=== PATIENT | male | born 1980 | race American Indian/Alaskan Native ===

== ENCOUNTER 2021-03-13 08:13 | Day surgery (SDC) | payer MEDICARE ==
--- NOTE | 2021-03-13 08:59 | Short Stay Summary ---
Short Stay Documentation Date of service: 03/13/21 - History Principal diagnosis: Chest Pain H&P: obtained from office Past Medical History: diabetes, hypertension Past Surgical History: no valve replacement, no CABG, no PTCA Social history: smoking, no alcohol abuse - Allergies and Medications Current Medications: Allergies No Known Allergies Allergy (Unverified 08/13/18 11:03) Home Medications Medication Instructions Recorded Confirmed Last Taken Type Cyclobenzaprine [Flexeril] 10 mg PO TID #30 tablet 08/13/18 Unknown Rx Ibuprofen [Motrin] 800 mg PO Q8HR #30 tablet 08/13/18 Unknown Rx - Physical exam General appearance: no acute distress Integumentary: no rash, other (R radial site - clean/dry/intact, no evidence of bleeding or hematoma) HEENT: Atraumatic Lungs: Clear to auscultation Heart: Regular rate, Normal S1, Normal S2, No murmurs Gastrointestinal: normal Extremities: pulses intact, No edema, normal temperature Neurological: Normal speech, Normal tone, Sensation intact - Brief post op/procedure progress note Date of procedure: 03/13/21 Pre-op diagnosis: Chest Pain Surgeon: JAQUI SNOW Estimated blood loss: minimal Pathology: none Condition: stable - Hospital course Hospital course: Pt presented for elective LHC, which revealed subtotal to total occlusion of the dominant RCA in the proximal part with faint filling antegradely and excellent collaterals on LCA injection, otherwise minimal irregularities and normal LV function. Pt tolerated procedure well. Currently stable with no complaints. Plan for outpatient intervention of [facility] [employer] DIRECTOR of RCA @ [place] (Dr. Carballo). Initiate bASA, Plavix, statin, and Imdur in the meantime. - Disposition Condition at discharge: Good Disposition: [id number] TO HOME OR SELFCARE - Discharge Diagnoses (1) CAD (coronary artery disease), [place] coronary artery Status: Chronic Qualifiers: [place] vs. transplanted heart: [place] heart Associated angina: with stable angina Qualified Code(s): I25.118 - Atherosclerotic heart disease of [place] coronary artery with other forms of angina pectoris Short Stay Discharge Plan Activity: advance as tolerated Diet: low cholesterol, low salt, diabetic Wound: per your surgeon's advice Special Instructions: smoking cessation Follow up with: TRISTON GARCIA MD [Primary Care Provider] - 7 Days SEUN HENRY MD [Staff Physician] - 10 Days [facility]: [facility]/C Instructions Prescriptions: AtorvaSTATin [Lipitor] 40 mg PO QHS #30 tablet ISOSORBIDE MONOnitrate [Imdur ER] 30 mg PO QDAY #30 tablet Clopidogrel [Plavix] 75 mg PO QDAY #30 tablet
[2021-03-13] MEDS ORDERED: ASPIRIN EC 325 MG TAB PO ONE (09:35)
[2021-03-13] MEDS ORDERED: SODIUM CHLORIDE 0.9% 500 ML 500 ML IV SCH (10:00)
[2021-03-13 10:20] LABS: Basophils % (Auto) 0.6 % (0.0-1.8); Eosinophils # (Auto) 0.2 K/mm3 (0.0-0.4); Eosinophils % (Auto) 3.1 % (0.0-4.3); Hematocrit 36.9 % (35.5-45.6); Lymphocytes # (Auto) 2.1 K/mm3 (1.2-5.4); Lymphocytes % (Auto) 28.2 % (13.4-35.0); Mean Corpuscular HGB Conc 35 % (32-34); Mean Corpuscular Volume 91 fl (84-94); Monocytes # (Auto) 0.5 K/mm3 (0.0-0.8); Platelet Count 183 K/mm3 (140-440); Red Blood Count 4.05 M/mm3 (3.65-5.03); Red Cell Distribution Width 14.4 % (13.2-15.2)
[2021-03-13] MEDS ORDERED: HEPARIN/NS 5000 UNIT/500ML 1,000 ML IR ONE (10:27)
[2021-03-13] MEDS ORDERED: NITROGLYCERIN SYRINGE 0 ML ONE (10:30)
[2021-03-13 10:33] LABS: INR 1.03 (0.87-1.13)
[2021-03-13 10:39] LABS: BUN/Creatinine Ratio 8; Blood Urea Nitrogen 8 mg/dL (9-20); Calcium 8.5 mg/dL (8.4-10.2); Hemolysis Index 8
[2021-03-13] MEDS: fentaNYL 100 MCG/2 ML INJ ONE ×2 (11:05→11:14)
[2021-03-13] MEDS: MIDAZOLAM 2 MG/2 ML INJ ONE ×2 (11:05→11:14)
[2021-03-13] MEDS: LIDOCAINE (2%) 20 MG/1 ML VIAL 20 ML MDV INFILTRATI ONE ×2 (11:05→11:19)
[2021-03-13] MEDS: HEPARIN 10,000 UNITS/10 ML VIAL ONE ×2 (11:06→11:22)
[2021-03-13] MEDS: VERAPAMIL 5 MG/2 ML INJ ONE ×2 (11:06→11:22)
[2021-03-13] MEDS ORDERED: ATROPINE 0.1% (1 MG/10 ML) CARDIAC SYRINGE ONE (11:11)
[2021-03-13] MEDS ORDERED: traMADol 50 MG TAB PO PRN (12:21)
[2021-03-13] MEDS ORDERED: HYDROcodone/ACETAMINOPHEN 5-325 MG TAB PO PRN (12:21)
--- NOTE | 2021-03-13 12:31 | Cardiac Catherization Report ---
DATE OF SERVICE: 03/13/2021 CARDIAC CATHETERIZATION AND CORONARY ANGIOGRAPHY INDICATION: The patient is a 40-year-old white gentleman with history of diabetes mellitus, hypertension, underlying anxiety disorder and depression. He was having chest pains with exertion, underwent stress EKG at which time he exercised 5 minutes and developed the chest pain, resolved at the end of the test. He exercised a total of 10 minutes into Vidal protocol. However, he did not achieve the adequate heart rate. He continues to have exertional chest pain when he walks up. Hence, scheduled for cardiac catheterization for definitive diagnosis and treatment. The patient is aware of the procedure, potential complications, and alternatives of therapy available. DESCRIPTION OF PROCEDURE: The patient was brought to the catheterization laboratory in a fasting condition. The patient was evaluated for moderate sedation and was felt to be an appropriate candidate for moderate sedation. Received IV Versed and fentanyl. Subsequently, the patient was prepared in standard fashion. Local anesthesia was given in the right wrist area. Right radial artery puncture was made using 21-gauge arterial puncture needle. Subsequently, a 5-Ecuadorean slender sheath was introduced. Received 5 mg of intra-arterial verapamil and 3000 units of intravenous heparin. A 5-[place]cu[place] multipurpose catheter was used to obtain the angiograms of the left ventricle done in RASHID projection using hand injection followed by angiograms of the right coronary artery and JL3.5 catheter was used to obtain the angiograms of the left coronary artery. After completion of the angiograms of both the coronary arteries, catheter and sheath were removed and radial band was applied for hemostasis. The patient tolerated the procedure well. No untoward complications were noted. At the end of the procedure, the patient is communicating normally and breathing normally and vital signs have been stable. His moderate sedation started at 11:14 a.m. and ended at 11:35 a.m. The patient was transferred to the room in stable condition. Following findings were noted. HEMODYNAMICS: Opening aortic pressure 138/82. Left ventricular pressure 138/22. No gradient across the aortic valve. Estimated ejection fraction 50-55%. Left ventriculogram done in RASHID projection using hand injection showed normal sized left ventricle with normal contractility. End-diastolic pressure is 22 mmHg. Mitral regurgitation could not be evaluated because of limited amount of dye injected. Right coronary artery dominant vessel appears to be totally or subtotally occluded in the very proximal part with faint filling of the mid RCA. This appears to be dominant vessel. Left coronary artery arises normally from left coronary cusp. Left main without significant disease. The LAD curves around the apex. The LAD and its branches show minimal irregularities, circumflex artery and its branches similarly show minimal irregularities. Excellent collaterals were noted to the right coronary artery on LCA injection. FINAL IMPRESSION: Normal sized left ventricle with normal contractility with left coronary system showing minimal irregularities; however, subtotal to total occlusion of the dominant RCA in the proximal part with a faint filling antegradely and excellent collaterals on LCA injection. At this time, the patient appears to have chronic angina with a total to subtotal occlusion of the RCA. Presently, his angina has been stable. He would benefit from intervention of the RCA; however, would arrange at the tertiary care center considering above anatomic findings. Findings were explained to the patient. The patient will be started on antiplatelet agents, aspirin and Plavix. The patient is already on amlodipine 10 mg a day. We will add Imdur for symptomatic relief. We will make arrangements as an elective procedure to be done of the intervention of the RCA. The patient is agreeable with the plan. The patient was transferred to the room in stable condition. TID: [id number] RECEIPT: [id number] KENROY/DAYA MUNIZ
[2021-03-13 14:37] VITALS: BP 134/80
[2021-03-14] MEDS ORDERED: ASPIRIN 81 MG TAB CHEW PO SCH (10:00)
[2021-03-14] MEDS ORDERED: CLOPIDOGREL 75 MG TAB PO SCH (10:00)
--- NOTE | 2021-03-14 10:12 | Electrocardiograph Report ---
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
== END 2021-03-13 15:25 | disposition home or self-care (01) ==
LOC: CATHLABREC 08:13
PROVIDERS: ATTEND Internal Medicine
DX: R07.89 Other chest pain (principal); E11.9 Type 2 diabetes mellitus without complications; I10 Essential (primary) hypertension; F31.9 Bipolar disorder, unspecified; F41.9 Anxiety disorder, unspecified; Z79.899 Other long term (current) drug therapy; Z79.82 Long term (current) use of aspirin; F17.210 Nicotine dependence, cigarettes, uncomplicated; I25.10 Atherosclerotic heart disease of native coronary artery without angina pectoris
CPT/HCPCS: 36415; 80048; 85025; 85610; 93005; 93458; 99156; C1894; J1644; J2250; J3010; J7040; J0461; Q9967

== ENCOUNTER 2021-08-19 16:14 | Emergency (ER) | payer MEDICARE ==
--- NOTE | 2021-08-19 17:59 | Emergency Department Report ---
ED General Adult HPI - General Stated complaint: OUT OF MEDS Time Seen by Provider: 08/19/21 17:57 - History of Present Illness Initial comments: Four 1-year-old male with a documented mental health history presents to the emergency department seeking a medication refill for lithium, and Lamictal as he had run out while he was incarcerated for for 5 days not able to get into see his doctor until August 26. Reports no suicidal homicidal ideation. No auditory or visual hallucinations. No mood swings no illicit drug Worsens with: none Associated Symptoms: denies other symptoms - Related Data Home Medications Medication Instructions Recorded Confirmed Last Taken Losartan [Cozaar] 100 mg PO DAILY 03/13/21 03/13/21 03/13/21 05:30 amLODIPine 10 mg PO DAILY 03/13/21 03/13/21 03/13/21 05:30 Previous Rx's Medication Instructions Recorded Last Taken Type Aspirin [Aspirin BABY CHEW TAB] 81 mg PO QDAY tab.chew 03/13/21 Unknown Rx AtorvaSTATin [Lipitor] 40 mg PO QHS #30 tablet 03/13/21 Unknown Rx Clopidogrel [Plavix] 75 mg PO QDAY #30 tablet 03/13/21 Unknown Rx ISOSORBIDE MONOnitrate [Imdur ER] 30 mg PO QDAY #30 tablet 03/13/21 Unknown Rx [place] Carbonate [[place] 300 mg PO HS #30 08/19/21 Unknown Rx Carbonate ER] clonazePAM [KlonoPIN] 2 mg PO HS #8 08/19/21 Unknown Rx lamoTRIgine [lamoTRIgine ER] 200 mg PO HS #30 08/19/21 Unknown Rx Allergies Allergy/AdvReac Type Severity Reaction Status Date / Time No Known Allergies Allergy Unverified 08/13/18 11:03 ED Review of Systems ROS: Stated complaint: OUT OF MEDS Other details as noted in HPI Comment: All other systems reviewed and negative ED Past Medical Hx - Past Medical History Hx Hypertension: Yes Additional medical history: ANXIETY - Surgical History Hx Pacemaker: No - Social History Smoking Status: Current Every Day Smoker - Medications Home Medications: Home Medications Medication Instructions Recorded Confirmed Last Taken Type Aspirin [Aspirin BABY CHEW TAB] 81 mg PO QDAY tab.chew 03/13/21 Unknown Rx AtorvaSTATin [Lipitor] 40 mg PO QHS #30 tablet 03/13/21 Unknown Rx Clopidogrel [Plavix] 75 mg PO QDAY #30 tablet 03/13/21 Unknown Rx ISOSORBIDE MONOnitrate [Imdur ER] 30 mg PO QDAY #30 tablet 03/13/21 Unknown Rx Losartan [Cozaar] 100 mg PO DAILY 03/13/21 03/13/21 03/13/21 05:30 History amLODIPine 10 mg PO DAILY 03/13/21 03/13/21 03/13/21 05:30 History [place] Carbonate [[place] 300 mg PO HS #30 08/19/21 Unknown Rx Carbonate ER] clonazePAM [KlonoPIN] 2 mg PO HS #8 08/19/21 Unknown Rx lamoTRIgine [lamoTRIgine ER] 200 mg PO HS #30 08/19/21 Unknown Rx ED Physical Exam - General General appearance: alert, in no apparent distress - Head Head exam: Present: atraumatic, normocephalic - Eye Eye exam: Present: normal appearance - ENT ENT exam: Present: mucous membranes moist - Neck Neck exam: Present: normal inspection - Respiratory Respiratory exam: Present: normal lung sounds bilaterally. Absent: respiratory distress - Cardiovascular Cardiovascular Exam: Present: regular rate, normal rhythm. Absent: systolic murmur, diastolic murmur, rubs, gallop - GI/Abdominal GI/Abdominal exam: Present: soft, normal bowel sounds - Rectal Rectal exam: Present: deferred - Extremities Exam Extremities exam: Present: normal inspection, normal capillary refill - Back Exam Back exam: Present: normal inspection - Neurological Exam Neurological exam: Present: alert, oriented X3, CN II-XII intact, normal gait - Psychiatric Psychiatric exam: Present: normal affect, normal mood. Absent: depressed, agitated, anxious, flat affect, manic, homicidal ideation, suicidal ideation - Skin Skin exam: Present: warm, dry, intact, normal color. Absent: rash Critical care attestation.: If time is entered above; I have spent that time in minutes in the direct care of this critically ill patient, excluding procedure time. ED Disposition Clinical Impression: Medication refill Disposition: 01 HOME / SELF CARE / HOMELESS Is pt being admited?: No Does the pt Need Aspirin: No Condition: Stable Prescriptions: clonazePAM [KlonoPIN] 2 mg PO HS #8 lamoTRIgine [lamoTRIgine ER] 200 mg PO HS #30 [place] Carbonate [[place] Carbonate ER] 300 mg PO HS #30 Referrals: [facility] [Provider Group] - 3-5 Days
[2021-08-19 18:09] VITALS: BP 148/89
== END 2021-08-19 18:29 | disposition home or self-care (01) ==
LOC: ED 16:14
DX: F41.9 Anxiety disorder, unspecified (principal); I10 Essential (primary) hypertension; Z76.0 Encounter for issue of repeat prescription; F17.200 Nicotine dependence, unspecified, uncomplicated
CPT/HCPCS: 99281